=== PATIENT | female | born 1990 | race American Indian/Alaskan Native ===

== ENCOUNTER 2020-03-13 09:26 | Emergency (ER) | payer MEDICAID ==
[2020-03-13 09:37] VITALS: BP 130/77
--- NOTE | 2020-03-13 11:26 | Emergency Department Report ---
ED Eye Problem HPI - General Chief complaint: Eye Problems Stated complaint: EYE RT EYE INJURY Time Seen by Provider: 03/13/20 11:20 Source: patient Mode of arrival: Ambulatory Limitations: No Limitations - History of Present Illness Initial comments: Patient is a 30-year-old female who presents emergency room with complaints of right eye pain, swelling, irritation that began yesterday when she got off work. She denies any fall or injury. She denies anything getting into the eye. She states that she has had lots of drainage and feels like her vision is blurry. She states that she was wearing false lashes yesterday with glue. She has a past medical history of diabetes. She denies allergies to medications. She states that she is post making an appointment with an air conditioning installer. - Related Data Previous Rx's Medication Instructions Recorded Last Taken Type Erythromycin [Erythromycin Ophth 1 applicatio OD QID 7 Days #1 tube 03/13/20 Unknown Rx Oint] ED Review of Systems ROS: Stated complaint: EYE RT EYE INJURY Other details as noted in HPI Comment: All other systems reviewed and negative ED Past Medical Hx - Past Medical History Previous Medical History?: Yes Hx Diabetes: Yes - Surgical History Past Surgical History?: Yes Additional Surgical History: C section - Medications Home Medications: Home Medications Medication Instructions Recorded Confirmed Last Taken Type Erythromycin [Erythromycin Ophth 1 applicatio OD QID 7 Days #1 tube 03/13/20 Unknown Rx Oint] ED Physical Exam - General Limitations: No Limitations General appearance: alert, in no apparent distress - Head Head exam: Present: atraumatic, normocephalic - Eye Eye exam: Present: PERRL, EOMI, conjunctival injection (right), other (right upper eyelid edema, scaling, and erythema, localized only to the lid) Pupils: Present: normal accommodation, other (no signs of entrapment, no pain with EOM) - ENT ENT exam: Present: mucous membranes moist - Respiratory Respiratory exam: Absent: respiratory distress, accessory muscle use - Neurological Exam Neurological exam: Present: alert, oriented X3 - Psychiatric Psychiatric exam: Present: normal affect, normal mood - Skin Skin exam: Present: warm, dry ED Course Vital Signs 03/13/20 03/13/20 09:36 11:34 Temperature 98.8 F Pulse Rate 108 H 84 Respiratory 16 Rate Blood Pressure 130/77 [Right] O2 Sat by Pulse 100 Oximetry ED Medical Decision Making - Medical Decision Making Patient is a 30-year-old female who presents emergency room with complaints of right eye pain, swelling, irritation that began yesterday when she got off work. She denies any fall or injury. She denies anything getting into the eye. She states that she has had lots of drainage and feels like her vision is blurry. She states that she was wearing false lashes yesterday with glue. She has a past medical history of diabetes. She denies allergies to medications. She states that she is post making an appointment with an air conditioning installer. Initial vitals with mild tachycardia which improved to normal upon repeat. On exam: right upper eyelid edema, scaling, and erythema, localized only to the lid, no signs of entrapment, no pain with EOM, right conjunctival injection. Examination appears most consistent with conjunctivitis and blepharitis. Patient given prescription for erythromycin ophthalmic ointment. Patient will be referred to air conditioning installer. Discussed lid hygiene with patient. Advised patient Please use medication as prescribed. Please wash your hands frequently and wash your hands before placing ointment. Avoid rubbing the eyes. Please practice good lid hygiene, wash your lashes with a no tear shampoo but do not get in the eye. Please do not wear false lashes. May use cold compresses. Follow-up with a air conditioning installer. It is very important that you follow-up. Follow-up with your primary care doctor. Return to emergency room for any new or worsening symptoms. Critical care attestation.: If time is entered above; I have spent that time in minutes in the direct care of this critically ill patient, excluding procedure time. ED Disposition Clinical Impression: Conjunctivitis Qualifiers: Conjunctivitis type: acute Acute conjunctivitis type: unspecified Laterality: right Qualified Code(s): H10.31 - Unspecified acute conjunctivitis, right eye Blepharitis Qualifiers: Blepharitis type: unspecified type Laterality: right Eyelid: upper Qualified Code(s): H01.001 - Unspecified blepharitis right upper eyelid Disposition: DC-01 TO HOME OR SELFCARE Is pt being admited?: No Does the pt Need Aspirin: No Condition: Stable Instructions: Conjunctivitis (ED), Blepharitis (ED) Additional Instructions: Please use medication as prescribed. Please wash your hands frequently and wash your hands before placing ointment. Avoid rubbing the eyes. Please practice good lid hygiene, wash your lashes with a no tear shampoo but do not get in the eye. Please do not wear false lashes. May use cold compresses. Follow-up with a air conditioning installer. It is very important that you follow-up. Follow-up with your primary care doctor. Return to emergency room for any new or worsening symptoms. Prescriptions: Erythromycin [Erythromycin Ophth Oint] 1 applicatio OD QID 7 Days #1 tube Referrals: BRANDO VUONG MD [Staff Physician] - 2-3 Days [facility] [Provider Group] - 2-3 Days your, primary care doctor [Other] - 2-3 Days Time of Disposition: 11:24 Print Language: TURKMEN
== END 2020-03-13 11:34 | disposition home or self-care (01) ==
LOC: ED 09:26
DX: H01.003 Unspecified blepharitis right eye, unspecified eyelid (principal); H10.9 Unspecified conjunctivitis; E11.9 Type 2 diabetes mellitus without complications; Z79.899 Other long term (current) drug therapy; Z98.890 Other specified postprocedural states
CPT/HCPCS: 99282

== ENCOUNTER 2020-06-12 00:57 | Emergency (ER) | payer MEDICAID ==
[2020-06-12] MEDS ORDERED: CLINDAMYCIN 150 MG/ML 2 ML VIAL IM ONE (01:19)
[2020-06-12] MEDS ORDERED: oxyCODONE /ACETAMINOPHEN 5-325MG TAB PO ONE (01:20)
[2020-06-12] MEDS ORDERED: LIDOCAINE (2%) 20 MG/1 ML VIAL 20 ML MDV INFILTRATI STA (01:20)
[2020-06-12 01:51] LABS: Basophils % (Auto) 0.1 % (0.0-1.8); Eosinophils # (Auto) 0.3 K/mm3 (0.0-0.4); Hematocrit 40.5 % (30.3-42.9); Hemoglobin 13.4 gm/dl (10.1-14.3); Lymphocytes # (Auto) 0.7 K/mm3 (1.2-5.4); Lymphocytes % (Auto) 4.8 % (13.4-35.0); Mean Corpuscular HGB Conc 33 % (30-34); Mean Corpuscular Volume 90 fl (79-97); Monocytes # (Auto) 0.7 K/mm3 (0.0-0.8); Monocytes % (Auto) 4.3 % (0.0-7.3); Platelet Count 286 K/mm3 (140-440); Red Blood Count 4.52 M/mm3 (3.65-5.03); Red Cell Distribution Width 12.3 % (13.2-15.2)
[2020-06-12 01:56] LABS: Alanine Aminotransferase 11 units/L (7-56); Albumin 3.6 g/dL (3.9-5); Blood Urea Nitrogen 8 mg/dL (7-17); Calcium 8.7 mg/dL (8.4-10.2); Hemolysis Index 7
[2020-06-12 01:59] LABS: BUN/Creatinine Ratio 11
[2020-06-12] MEDS ORDERED: SODIUM CHLORIDE 0.9% 1000 ML 1,000 ML IV ONE ×2 (02:28)
--- NOTE | 2020-06-12 02:29 | Emergency Department Report ---
<HUNTERGRANT BERNARDO - Last Filed: 06/12/20 03:41> - General Chief Complaint: Skin/Abscess/Foreign Body Stated Complaint: SPIDER BITE ON BUTT Time Seen by Provider: 06/12/20 01:15 Source: patient Mode of arrival: Ambulatory Limitations: No Limitations - History of Present Illness Initial Comments: 30-year-old -[place] female diabetic presents emerged department complaining of a few day history of progressive worsening abscess to the right buttocks which appeared to have gotten worse after she poked it with a pen a couple days ago states that she only got blood out of the wound but the swelling and pain had worsened reports occasional fevers and sensation but no nausea no vomiting no chest pain or palpitations -: Gradual 1 - Abscess area Place: home Associated Symptoms: pain - Related Data Previous Rx's Medication Instructions Recorded Last Taken Type Erythromycin [Erythromycin Ophth 1 applicatio OD QID 7 Days #1 tube 03/13/20 Unknown Rx Oint] Acetaminophen/Codeine [Tylenol 1 tab PO Q6H PRN #10 tab 06/12/20 Unknown Rx /Codeine # 3 tab] Chlorhexidine Gluconate 5 ml TP BID #240 liquid 06/12/20 Unknown Rx [Antiseptic Skin Cleanser] Clindamycin [Clindamycin CAP] 150 mg PO Q8HR #30 capsule 06/12/20 Unknown Rx Allergies Allergy/AdvReac Type Severity Reaction Status Date / Time No Known Allergies Allergy Verified 06/12/20 01:51 ED Review of Systems Comment: All other systems reviewed and negative ED Past Medical Hx - Past Medical History Previous Medical History?: Yes Hx Diabetes: Yes - Surgical History Past Surgical History?: Yes Additional Surgical History: C section x2 - Social History Smoking Status: Never Smoker Substance Use Type: None - Medications Home Medications: Home Medications Medication Instructions Recorded Confirmed Last Taken Type Erythromycin [Erythromycin Ophth 1 applicatio OD QID 7 Days #1 tube 03/13/20 Unknown Rx Oint] Acetaminophen/Codeine [Tylenol 1 tab PO Q6H PRN #10 tab 06/12/20 Unknown Rx /Codeine # 3 tab] Chlorhexidine Gluconate 5 ml TP BID #240 liquid 06/12/20 Unknown Rx [Antiseptic Skin Cleanser] Clindamycin [Clindamycin CAP] 150 mg PO Q8HR #30 capsule 06/12/20 Unknown Rx ED Physical Exam - General Limitations: No Limitations General appearance: alert, in no apparent distress - Head Head exam: Present: atraumatic, normocephalic - Eye Eye exam: Present: normal appearance, PERRL Pupils: Present: normal accommodation - ENT ENT exam: Present: normal exam, mucous membranes moist, TM's normal bilaterally - Neck Neck exam: Present: normal inspection, full ROM. Absent: meningismus, lymphadenopathy, thyromegaly - Respiratory Respiratory exam: Present: normal lung sounds bilaterally. Absent: respiratory distress, rales, rhonchi, decreased breath sounds, prolonged expiratory - Cardiovascular Cardiovascular Exam: Present: regular rate, normal rhythm. Absent: systolic murmur, diastolic murmur, rubs, gallop - GI/Abdominal GI/Abdominal exam: Present: soft, normal bowel sounds - Extremities Exam Extremities exam: Present: normal inspection - Back Exam Back exam: Present: normal inspection - Neurological Exam Neurological exam: Present: alert, oriented X3 - Psychiatric Psychiatric exam: Present: normal affect, normal mood - Skin Skin exam: Present: warm, dry, intact, normal color. Absent: rash - Procedure Description Procedures done: PRE-OP DIAGNOSIS: *Abscess. POST-OP DIAGNOSIS: Same. PROCEDURE: incision and drainage of abscess. Performing Physician/advanced practice provider: Jennifer Fernandez_. . PROCEDURE: A timeout protocol was performed prior to initiating the procedure. The area was prepared and draped in the usual, sterile manner. The site was anesthetized with 2% lidocaine without epinephrine. A linear incision was along the local skin lines was made and the purulent material expressed. The abcess was explored thoroughly and sequestered pockets were opened. Wound was irrigated with normal saline and bleeding was minimal. Packing: None. . Followup: The patient tolerated the procedure well without complications. Standard post-procedure care is explained and return precautions are given. ED Medical Decision Making - Lab Data Result diagrams: 06/12/20 01:22 06/12/20 01:22 - Medical Decision Making 30-year-old -[place] female presents usually diabetes [facility] abscess incision and drainage was performed with no complications she was treated with clindamycin while in the emergency department and began to have a reaction to the medication which was treated with antihistamines steroids and fluids she also had his elevation in her blood sugar was treated with insulin 10 mg ED Disposition Disposition: DC-01 TO HOME OR SELFCARE Is pt being admited?: No Does the pt Need Aspirin: No Condition: Stable Instructions: Skin Abscess, Incision and Drainage Additional Instructions: Be sure to have your wound rechecked in 48 hours for reevaluation clean your wound multiple times daily take them antibiotics as prescribed TAKE Motrin as needed for fever and to assist with pain medication Prescriptions: Chlorhexidine Gluconate [Antiseptic Skin Cleanser] 5 ml TP BID #240 liquid Clindamycin [Clindamycin CAP] 150 mg PO Q8HR #30 capsule Acetaminophen/Codeine [Tylenol /Codeine # 3 tab] 1 tab PO Q6H PRN #10 tab PRN Reason: Pain , Severe (7-10) Referrals: MANUEL OLSON MD [Primary Care Provider] - 3-5 Days [facility] [Provider Group] - 3-5 Days PATTI JUÁREZ MD [Staff Physician] - 3-5 Days <IZA HUERTA - Last Filed: 06/12/20 04:19> ED Review of Systems ROS: Stated complaint: SPIDER BITE ON BUTT Other details as noted in HPI ED Course Vital Signs 06/12/20 06/12/20 01:02 03:27 Temperature 98.2 F 98.0 F Pulse Rate 161 H 123 H Respiratory 18 18 Rate Blood Pressure 149/101 118/74 O2 Sat by Pulse 96 95 Oximetry ED Medical Decision Making - Lab Data Result diagrams: 06/12/20 01:22 06/12/20 01:22 - Medical Decision Making ED staff member asked me to evaluate patient for persistent discomfort due to allergic reaction. Patient has diffuse redness itching after receiving IM clindamycin. I ordered additional doses of diphenhydramine IV. Also ordered hydrocortisone cream topical. Critical care attestation.: If time is entered above; I have spent that time in minutes in the direct care of this critically ill patient, excluding procedure time.
[2020-06-12] MEDS ORDERED: FAMOTIDINE 20 MG/2 ML INJ IV ONE (03:39)
[2020-06-12] MEDS ORDERED: diphenhydrAMINE 50 MG/ML VIAL IV ONE ×3 (03:39→05:36)
[2020-06-12] MEDS ORDERED: INSULIN REGULAR, HUMAN 100 UNIT/ML 3ML VIAL IV ONE (03:39)
[2020-06-12] MEDS ORDERED: methylPREDNISolone Sod Succinate 125 MG/2 ML INJ IV ONE ×2 (03:40→05:29)
[2020-06-12 03:41] VITALS: BP 118/74
[2020-06-12] MEDS ORDERED: INSULIN REGULAR, HUMAN 100 UNITS/1 ML ONE (03:45)
[2020-06-12] MEDS ORDERED: HYDROCORTISONE 1% CREAM 28.4GM TP ONE (04:18)
[2020-06-12] MEDS ORDERED: hydrOXYzine HCL 25 MG TAB PO ONE (05:29)
== END 2020-06-12 06:23 | disposition home or self-care (01) ==
LOC: ED 00:57
DX: L02.31 Cutaneous abscess of buttock (principal); E11.9 Type 2 diabetes mellitus without complications; Z79.899 Other long term (current) drug therapy; Z88.8 Allergy status to other drugs, medicaments and biological substances
CPT/HCPCS: 10060; 36415; 80053; 85025; 96361; 96372; 96374; 96375; 96376; 99283; A6250; J1200; J2930; J7030; J1815

== ENCOUNTER 2020-07-03 10:43 | Emergency (ER) | payer MEDICAID ==
[2020-07-03 11:23] VITALS: BP 107/68
--- NOTE | 2020-07-03 11:36 | Emergency Department Report ---
Abscess Boil HPI - HPI Chief Complaint: Skin/Abscess/Foreign Body Stated Complaint: SPIDER BITE RETURNED Time Seen by Provider: 07/03/20 11:12 Duration: >1 Week Location: Other (Buttocks) History: Yes Pain, No Fever, No Purulent Drainage, No Numbness, No Foreign Body, No Previous History, No Insect Bite HPI: Is a very pleasant 30-year-old female presents the emergency department chief complaint of an abscess to her right buttocks. Patient reports she has a history of type 2 diabetes that is poorly controlled with insulin. She states usually her sugars run around 300 because she does not like to get it much lower than that due to it making her feel bad. She reports she was here 1 month ago with the same issue and had the abscess drained and was given a dose of IV antibiotics which caused itching and oral antibiotics which caused allergic reaction as well. She denies any associated fever, chills, night sweats, headache, dizziness, blurry vision, nausea, vomiting, diarrhea, chest pain, shortness of breath or any other associated symptoms. Home Medications: Previous Rx's Medication Instructions Recorded Last Taken Type Erythromycin [Erythromycin Ophth 1 applicatio OD QID 7 Days #1 tube 03/13/20 Unknown Rx Oint] Acetaminophen/Codeine [Tylenol 1 tab PO Q6H PRN #10 tab 06/12/20 Unknown Rx /Codeine # 3 tab] Chlorhexidine Gluconate 5 ml TP BID #240 liquid 06/12/20 Unknown Rx [Antiseptic Skin Cleanser] Famotidine [Pepcid] 40 mg PO DAILY #14 tablet 06/12/20 Unknown Rx cephALEXin [Keflex] 500 mg PO Q8HR #30 cap 06/12/20 Unknown Rx hydrOXYzine HCL [Atarax] 25 mg PO Q6HR PRN #20 tablet 06/12/20 Unknown Rx predniSONE [Deltasone] 50 mg PO QDAY #5 tab 06/12/20 Unknown Rx Naproxen [Naprosyn TAB] 500 mg PO BID #20 tablet 07/03/20 Unknown Rx Sulfamethoxazole/Trimethoprim 1 each PO BID #14 tablet 07/03/20 Unknown Rx [Bactrim DS TAB] Allergies/Adverse Reactions: Allergies Allergy/AdvReac Type Severity Reaction Status Date / Time clindamycin Allergy Itching Verified 06/12/20 04:31 ED Review of Systems ROS: Stated complaint: SPIDER BITE RETURNED Other details as noted in HPI Comment: All other systems reviewed and negative Constitutional: denies: chills, fever Eyes: denies: eye pain, eye discharge, vision change ENT: denies: ear pain, throat pain Respiratory: denies: cough, shortness of breath, wheezing Cardiovascular: denies: chest pain, palpitations Endocrine: no symptoms reported Gastrointestinal: denies: abdominal pain, nausea, diarrhea Genitourinary: denies: urgency, dysuria, discharge Musculoskeletal: denies: back pain, joint swelling, arthralgia Skin: as per HPI, lesions. denies: rash Neurological: denies: headache, weakness, paresthesias Psychiatric: denies: anxiety, depression Hematological/Lymphatic: denies: easy bleeding, easy bruising ED Past Medical Hx - Past Medical History Previous Medical History?: Yes Hx Diabetes: Yes - Surgical History Past Surgical History?: Yes Additional Surgical History: C section - Social History Smoking Status: Never Smoker Substance Use Type: None - Medications Home Medications: Home Medications Medication Instructions Recorded Confirmed Last Taken Type Erythromycin [Erythromycin Ophth 1 applicatio OD QID 7 Days #1 tube 03/13/20 Unknown Rx Oint] Acetaminophen/Codeine [Tylenol 1 tab PO Q6H PRN #10 tab 06/12/20 Unknown Rx /Codeine # 3 tab] Chlorhexidine Gluconate 5 ml TP BID #240 liquid 06/12/20 Unknown Rx [Antiseptic Skin Cleanser] Famotidine [Pepcid] 40 mg PO DAILY #14 tablet 06/12/20 Unknown Rx cephALEXin [Keflex] 500 mg PO Q8HR #30 cap 06/12/20 Unknown Rx hydrOXYzine HCL [Atarax] 25 mg PO Q6HR PRN #20 tablet 06/12/20 Unknown Rx predniSONE [Deltasone] 50 mg PO QDAY #5 tab 06/12/20 Unknown Rx Naproxen [Naprosyn TAB] 500 mg PO BID #20 tablet 07/03/20 Unknown Rx Sulfamethoxazole/Trimethoprim 1 each PO BID #14 tablet 07/03/20 Unknown Rx [Bactrim DS TAB] ED Abscess Boil Physical Exam - Exam General: Vital signs noted. No distress. Alert and acting appropriately. Size: 5 cm Exam: Yes Fluctuance, Yes Normal Neurologic Exam, Yes Normal Circulation, No Tenderness, No Surrounding Cellulites/Erythema, No Lymphangitis, No Crepitation, No Heart Murmur Exam: GENERAL APPEARANCE: Well-developed, well-nourished, no acute distress. HEENT: Normocephalic and atraumatic. No scleral icterus. Pupils are equal, round, and reactive to light and accommodation. No conjunctival injection is noted. Oropharynx is clear. Mouth revealed good dentition, no lesions. Tympanic membranes are clear. NECK: Supple. Trachea is midline. No evidence of thyroid enlargement. No lymphadenopathy or tenderness. CHEST: Symmetric. Nontender to palpation. LUNGS: Breath sounds are equal and clear bilaterally. No wheezes, rhonchi, or rales. HEART: Regular rate and rhythm with normal S1 and S2. No murmurs, gallops, or rubs. BREASTS: Symmetrical. No skin or nipple retractions. No nipple discharges or masses. ABDOMEN: Soft, flat, and benign. No mass, tenderness, guarding, or rebound. No organomegaly or hernia. Bowel sounds are present. No CVA tenderness or flank mass. GENITOURINARY: Deferred. RECTAL: Deferred. EXTREMITIES: No cyanosis, clubbing, or edema. No lower extreme edema, negative Homans sign bilaterally. NEUROLOGIC: No focal sensory or motor deficits are noted. Gait is normal. Cranial nerves II through XII are intact. Deep tendon reflexes are intact. PSYCHIATRIC: The patient is awake, alert, and oriented x3. Recent and remote memory is intact. Appropriate mood and affect. SKIN: Warm, dry, and well perfused. Good turgor. No lesions, nodules or rashes are noted. No onychomycosis. Large fluctuant abscess to the right buttocks. LYMPHATICS: No cervical, axillary, or groin adenopathy is noted. I & D Note - I & D Note I & D Note: The area was first cleaned with Betadine prep. I then anesthetized the area with 1% lidocaine without epinephrine I then made a 1 cm incision over the area of most fluctuance. A copious amount of purulent drainage was then expressed. The wound was then deloculated and irrigated and approximately 10 cm of iodoform packing was placed inside the wound. Patient tolerated this very well. Sterile dressing was applied. There were no complications. Less than 5 mL of blood loss. ED Course Vital Signs 07/03/20 11:19 Temperature 97.9 F Pulse Rate 112 H Respiratory 18 Rate Blood Pressure 107/68 O2 Sat by Pulse 99 Oximetry Critical care attestation.: If time is entered above; I have spent that time in minutes in the direct care of this critically ill patient, excluding procedure time. ED Medical Decision Making - Medical Decision Making Incision and drainage was performed without complication. Patient tolerated this well. I spent 5 minutes of [id number] time with doing diabetic education about the importance of diet, exercise and close primary care follow-up to ensure that her diabetes is managed properly. I educated her about the risk of not having properly controlled diabetes such as recurrent infections such as the abscess on her buttocks, heart disease, stroke, vascular disease, renal disease, blindness. She was given a prescription for keflex previously that caused a reaction. I will switch her to bactrim and outpatient follow-up with a primary care doctor. Return the emerge department any change or worsening symptoms. She verbalized understanding of the diagnosis, treatment plan and follow-up instructions and all her questions were answered. - Differential Diagnosis Abscess, insect bite, abrasion ED Disposition Clinical Impression: Abscess of buttock Disposition: DC-01 TO HOME OR SELFCARE Is pt being admited?: No Condition: Stable Instructions: Skin Abscess, Incision and Drainage, Care After Prescriptions: Sulfamethoxazole/Trimethoprim [Bactrim DS TAB] 1 each PO BID #14 tablet Naproxen [Naprosyn TAB] 500 mg PO BID #20 tablet Referrals: [facility] [Provider Group] - 3-5 Days PATTI JUÁREZ MD [Staff Physician] - 3-5 Days Forms: Work/School Release Form(ED) Time of Disposition: 11:35
== END 2020-07-03 12:22 | disposition home or self-care (01) ==
LOC: ED 10:43
DX: L02.31 Cutaneous abscess of buttock (principal); E11.9 Type 2 diabetes mellitus without complications; Z98.890 Other specified postprocedural states; Z79.2 Long term (current) use of antibiotics; Z79.899 Other long term (current) drug therapy; Z88.8 Allergy status to other drugs, medicaments and biological substances
CPT/HCPCS: 99282

== ENCOUNTER 2020-09-16 23:49 | Emergency (ER) | payer MEDICAID ==
[2020-09-17] MEDS ORDERED: KETOROLAC 30 MG/1 ML INJ IV ONE (00:39)
[2020-09-17] MEDS ORDERED: FAMOTIDINE 20 MG/2 ML INJ IV ONE (00:39)
[2020-09-17] MEDS ORDERED: ACETAMINOPHEN 500 MG TAB PO ONE (00:39)
[2020-09-17] MEDS ORDERED: diphenhydrAMINE 50 MG/ML VIAL IV ONE (00:39)
[2020-09-17] MEDS ORDERED: methylPREDNISolone Sod Succinate 125 MG/2 ML INJ IV ONE (00:39)
[2020-09-17] MEDS ORDERED: SODIUM CHLORIDE 0.9% 1000 ML 1,000 ML IV ONE (00:39)
--- NOTE | 2020-09-17 00:44 | Emergency Department Report ---
ED General Adult HPI - General Chief complaint: Allergic Reaction Stated complaint: ALLERGIC REACTION/CHEST PAIN PUI?: No Time Seen by Provider: 09/17/20 00:30 Source: patient, RN notes reviewed, old records reviewed Mode of arrival: Ambulatory Limitations: No Limitations - History of Present Illness Initial comments: The patient was evaluated in the emergency department for symptoms described in the history of present illness. He/she was evaluated in the context of the global COVID-19 pandemic, which necessitated consideration that the patient might be at risk for infection with the virus that causes COVID-19. Instituti onal protocols and algorithms that pertain to the evaluation of patients at risk for COVID-19 are in a state of rapid change based on information released by regulatory bodies including the CDC and federal and state organizations. These policies and algorithms were followed during the patient's care in the emergency department. Please note that these policies, procedures and recommendations changed on a rapid basis. During the history and physical examination, I am chaperoned by nurse Ericka goddard This is a 30-year-old female. She is not known to myself previously. She reports that she is not , and has not delivered or given in the past 6 weeks. The patient presents to the ER with 2 complaints. The patient's first complaint is "I think I had an allergic reaction." Patient reports that she has been on Bactrim for the past 3 days for a "urinary tract infection", that was diagnosed a few days ago at an outpatient urgent care/medical clinic. She has taken the Bactrim for the past few days without difficulty, but this evening, at approximately 11:00 PM, took the Bactrim tablet, and then subsequently developed skin rash, and itching. It is now resolved. The patient also says that simultaneously, she developed left-sided chest wall pain, around her left breast. The pain did not radiate to her back, arms or neck. There is no vomiting, diaphoresis or exertional shortness of breath. Patient denies surgery, travel, posterior leg pain and leg swelling, travel, surgery, personal/family history of DVT pulmonary embolism risk factors, as well as ischemic heart disease. The patient is mildly anxious. On review of systems, denies headache, neck pain, sore throat, cough, she does have persistent dysuria, and vaginal discharge. She does report a distant history of gonorrhea/possible chlamydia/possible trichomoniasis, 10 to 12 years ago. She reports 1 sexual partner. She thinks STI is unlikely. She denies rectal pain or dyschezia. -: Sudden Location: chest (Left chest wall, inferior/lateral to the left breast), back, left, right, upper extremity, lower extremity Quality: other (Itching. Aching.) Consistency: other (Chest pain intermittent. Rash is basically resolved at this time) Improves with: rest Worsens with: other (Chest wall pain increases with palpation) - Related Data Previous Rx's Medication Instructions Recorded Last Taken Type Chlorhexidine Gluconate 5 ml TP BID #240 liquid 06/12/20 Unknown Rx [Antiseptic Skin Cleanser] Famotidine [Pepcid] 40 mg PO DAILY #14 tablet 06/12/20 Unknown Rx hydrOXYzine HCL [Atarax] 25 mg PO Q6HR PRN #20 tablet 06/12/20 Unknown Rx predniSONE [Deltasone] 50 mg PO QDAY #5 tab 06/12/20 Unknown Rx Naproxen [Naprosyn TAB] 500 mg PO BID #20 tablet 07/03/20 Unknown Rx EPINEPHrine [Epipen 2-Cachorro] 0.3 mg IM DAILY PRN #2 ml 09/17/20 Unknown Rx Famotidine [Pepcid] 20 mg PO BID #10 tablet 09/17/20 Unknown Rx Nitrofurantoin Mason/M-Cryst 100 mg PO Q12HR #14 capsule 09/17/20 Unknown Rx [Macrobid CAP] diphenhydrAMINE [Benadryl] 50 mg PO Q8HR PRN #20 capsule 09/17/20 Unknown Rx Allergies Allergy/AdvReac Type Severity Reaction Status Date / Time clindamycin Allergy Itching Verified 06/12/20 04:31 ED Review of Systems ROS: Stated complaint: ALLERGIC REACTION/CHEST PAIN Other details as noted in HPI Constitutional: denies: fever Eyes: denies: eye discharge ENT: denies: epistaxis Respiratory: denies: cough Cardiovascular: chest pain Gastrointestinal: denies: abdominal pain, nausea, vomiting, hematemesis, melena Genitourinary: dysuria, discharge Musculoskeletal: denies: back pain Skin: rash, pruritus Psychiatric: anxiety Hematological/Lymphatic: denies: easy bleeding ED Past Medical Hx - Past Medical History Previous Medical History?: Yes Hx Diabetes: Yes - Surgical History Past Surgical History?: Yes Additional Surgical History: C section X 2 - Social History Smoking Status: Never Smoker Substance Use Type: None - Medications Home Medications: Home Medications Medication Instructions Recorded Confirmed Last Taken Type Chlorhexidine Gluconate 5 ml TP BID #240 liquid 06/12/20 Unknown Rx [Antiseptic Skin Cleanser] Famotidine [Pepcid] 40 mg PO DAILY #14 tablet 06/12/20 Unknown Rx hydrOXYzine HCL [Atarax] 25 mg PO Q6HR PRN #20 tablet 06/12/20 Unknown Rx predniSONE [Deltasone] 50 mg PO QDAY #5 tab 06/12/20 Unknown Rx Naproxen [Naprosyn TAB] 500 mg PO BID #20 tablet 07/03/20 Unknown Rx EPINEPHrine [Epipen 2-Cachorro] 0.3 mg IM DAILY PRN #2 ml 09/17/20 Unknown Rx Famotidine [Pepcid] 20 mg PO BID #10 tablet 09/17/20 Unknown Rx Nitrofurantoin Mason/M-Cryst 100 mg PO Q12HR #14 capsule 09/17/20 Unknown Rx [Macrobid CAP] diphenhydrAMINE [Benadryl] 50 mg PO Q8HR PRN #20 capsule 09/17/20 Unknown Rx ED Physical Exam - General Limitations: No Limitations, Other (Chaperoned by nurse Ericka Palomo) General appearance: alert, in no apparent distress - Head Head exam: Present: atraumatic, normocephalic - Eye Eye exam: Present: normal appearance, EOMI. Absent: nystagmus - ENT ENT exam: Present: normal exam, normal orophraynx, mucous membranes moist, normal external ear exam, other (Speaking in full sentences, without stridor or dysphonia) - Neck Neck exam: Present: normal inspection, full ROM. Absent: tenderness, meningismus - Respiratory Respiratory exam: Present: normal lung sounds bilaterally, chest wall tenderne ss. Absent: respiratory distress, wheezes, rales, rhonchi, stridor - Cardiovascular Cardiovascular Exam: Present: normal rhythm, tachycardia, normal heart sounds. Absent: irregular rhythm, systolic murmur, diastolic murmur, rubs, gallop - GI/Abdominal GI/Abdominal exam: Present: soft. Absent: distended, tenderness, guarding, rebound, rigid, pulsatile mass - External exam: Present: normal external exam. Absent: erythema, swelling Speculum exam: Present: vaginal discharge, other (Chaperoned by nurse Ericka Palomo). Absent: erythema, vaginal bleeding - Extremities Exam Extremities exam: Present: normal inspection (On the right lateral arm, there is blanching nontender erythema. Linear scratch haddad noted on the posterior back.), full ROM, other (2+ pulses noted in the bilateral upper and lower extremities. There is no palpable cord. negative Homans sign. Muscular compartments are soft. The pelvis is stable.). Absent: pedal edema, calf tenderness - Back Exam Back exam: Present: normal inspection, full ROM. Absent: tenderness, CVA tenderness (R), CVA tenderness (L), paraspinal tenderness, vertebral tenderness - Neurological Exam Neurological exam: Present: alert, other (No facial droop. Tongue midline. Extraocular movements intact bilaterally. Facial sensation intact to light touch in V1, V2, V3 distribution bilaterally. 5 and a 5 strength in 4 extremities. Sensation intact to light touch in 4 extremities.). Absent: motor sensory deficit - Psychiatric Psychiatric exam: Present: anxious - Skin Skin exam: Present: warm, erythema, other (Linear scratch haddad noted on the back) ED Course Vital Signs 09/17/20 09/17/20 09/17/20 00:22 00:45 00:53 Temperature 98.5 F Pulse Rate 116 H 105 H Respiratory 20 16 18 Rate Blood Pressure 134/85 109/70 O2 Sat by Pulse 100 99 Oximetry 09/17/20 09/17/20 09/17/20 01:00 01:23 01:53 Temperature Pulse Rate 90 Respiratory 20 18 18 Rate Blood Pressure 120/79 O2 Sat by Pulse Oximetry - Reevaluation(s) Reevaluation #1: 09/17/20 00:44 Differential diagnosis, including but not limited to: Bactrim intolerance, medication side effect, allergic reaction, costochondritis, vaginitis, urinary tract infection Assessment and plan: 30-year-old female with multiple complaints. Complaint #1, possible allergic reaction to Bactrim, having been on this medication for a few days, although with breakthrough symptoms today. Patient minimally pruritic at this time. She does have a rash on her right lateral upper extremity. She denies having a tampon. We will obtain clean-catch urinalysis, treat with Pepcid, Benadryl, steroids, start IV fluids. Perform gynecologic examination. Reassess. Complaint #2, left-sided chest wall pain. Patient is tachycardic but anxious, she is on Depo, but otherwise denies DVT and pulmonary embolism risk factors, and I find to be low risk by Wells criteria for pulmonary embolism. Her chest wall pain is reproducible. Assuming negative troponin which we anticipate, patient at low risk for major adverse cardiac event as per heart score We will treat her symptoms, obtain EKG, appropriate laboratory studies, x-ray of the chest, and reassess after initial data points. Reevaluation #2: 09/17/20 03:30 Troponin negative. D-dimer negative. Hyperglycemia appreciated. Patient reports that she is due for new insulin pump. She is going to follow-up with a local outpatient primary care doctor. Urinalysis reviewed and appreciated. Patient updated on findings. She indicates she is ready for discharge. Once Accu-Chek/hyperglycemia improved, will discharge patient. Reevaluation #3: 09/17/20 03:58 Repeat Accu-Chek 194. - Consultations Consultation #1: 09/17/20 01:02 EKG transmitted to consulting sales strategy manager, Dr. Gomes. We have discussed the patient's history, physical, and presentation. Patient to me denies palpitations and loss of consciousness/syncope. He advises that it would be reasonable to have the patient follow-up as an outpatient for abnormal EKG. Therefore, we will continue to work-up and evaluate the patient, and if no emergent findings identified, discharged to follow-up with outpatient cardiology as well as primary care. ED Medical Decision Making - Lab Data Result diagrams: 09/17/20 00:46 09/17/20 00:46 Vital Signs 09/17/20 00:22 Temperature 98.5 F Pulse Rate 116 H Respiratory 20 Rate Blood Pressure 134/85 O2 Sat by Pulse 100 Oximetry - EKG Data -: EKG Interpreted by Me Rate: tachycardia - EKG Data When compared to previous EKG there are: previous EKG unavailable 09/17/20 00:52 EKG interpreted at 12: 47 AM Sinus rhythm, tachycardia, 101 bpm. Left axis deviation. Delta wave appreciated in lead I, 2, aVL, suspicious for WPW. QRS duration in lead I and aVL 120 to 160 ms. Q waves noted in lead III. This is an abnormal EKG, the EKG is not a STEMI. There is no prior for comparison - Radiology Data Radiology results: pending, report reviewed, image reviewed [facility] [address] [place] [address] XRay Report Signed Patient: SIRENA IBRAHIM MR#: [id number] : 1990 Acct:[id number] Age/Sex: 30 / F ADM Date: 09/16/20 Loc: ED Attending Dr: Ordering Physician: MONIQUE PINA MD Date of Service: 09/17/20 Procedure(s): XR chest routine 2V Accession Number(s): [id number] cc: MONIQUE PINA MD Fluoro Time In Minutes: CHEST 2 VIEWS INDICATION / CLINICAL INFORMATION: Chest pain. Allergic reaction. COMPARISON: None available. FINDINGS: SUPPORT DEVICES: None. HEART / MEDIASTINUM: The heart size and pulmonary vasculature are normal. The aorta is normal in caliber. LUNGS / PLEURA: No significant pulmonary or pleural abnormality. No pneumothorax. ADDITIONAL FINDINGS: No significant additional findings. IMPRESSION: No acute findings. Signer Name: Mesfin Saavedra MD Signed: 09/17/2020 3:01 AM Workstation Name: [id number] Transcribed By: RT Dictated By: Mesfin Saavedra MD Electronically Authenticated By: Mesfin Saavedra MD Signed Date/Time: 09/17/20 030 DD/ 0300 Critical care attestation.: If time is entered above; I have spent that time in minutes in the direct care of this critically ill patient, excluding procedure time. ED Disposition Clinical Impression: Chest wall pain, Abnormal EKG, Medication side effect, Hyperglycemia, Dysuria, Vaginal discharge Disposition: DC-01 TO HOME OR SELFCARE Is pt being admited?: No Does the pt Need Aspirin: No Condition: Good Instructions: Hyperglycemia, Drug Allergy, Dysuria, Costochondritis Additional Instructions: Cultures were sent today, the results be available in the next 3 to 5 days. Please have your primary care doctor, or DOCUMENT CONTROL ASSOCIATE doctor contact medical records department to obtain copies of culture results. Patient was found to have an incidentally abnormal EKG, which should be followed up by a sales strategy manager within the next 3 to 5 days. For the patient's convenience, we have listed name, practice of local cardiology practice, [facility], Dr. Gomes. Please make certain to contact local cardiology practice, to arrange close outpatient follow-up. Please have a primary care doctor contact medical records department to obtain copies of laboratory studies, radiology studies, and culture results. Patient may take the prescribed medications as needed and directed for sensation of allergic reaction. Please return to the emergency room right away with new pain, worsened pain, migration of pain, projectile vomiting, change in mental status, confusion, inability to tolerate liquid feeds, palpitations, loss of consciousness. Recommend that patient avoid consumption of alcohol, tobacco Recommend that patient avoid strenuous physical activity, athletics, until cleared to participate by your primary care doctor or sales strategy manager. Recommend that patient consume a diabetic appropriate diet. Recommend that patient discontinue Bactrim. Patient may take the Macrobid as directed. Prescriptions: diphenhydrAMINE [Benadryl] 50 mg PO Q8HR PRN #20 capsule PRN Reason: Allergic Reaction EPINEPHrine [Epipen 2-Cachorro] 0.3 mg IM DAILY PRN #2 ml PRN Reason: Allergic Reaction Nitrofurantoin Mason/M-Cryst [Macrobid CAP] 100 mg PO Q12HR #14 capsule Famotidine [Pepcid] 20 mg PO BID #10 tablet Referrals: [facility] [Provider Group] - 3-5 Days (Cardiology) FELICIANO GOMES MD [Staff Physician] - 3-5 Days (Cardiology) PATTI JUÁREZ MD [Staff Physician] - 3-5 Days (Primary care) MANUEL OLSON MD [Primary Care Provider] - 3-5 Days [facility] [Provider Group] - 3-5 Days
[2020-09-17 00:58] LABS: Hematocrit 41.2 % (30.3-42.9); Hemoglobin 14.2 gm/dl (10.1-14.3); Mean Corpuscular HGB Conc 34 % (30-34); Mean Corpuscular Volume 90 fl (79-97); Platelet Count 271 K/mm3 (140-440); Red Blood Count 4.58 M/mm3 (3.65-5.03); Red Cell Distribution Width 12.4 % (13.2-15.2)
[2020-09-17 01:10] LABS: INR 0.96 (0.87-1.13)
[2020-09-17 01:35] LABS: Bacteria,Urine 1+ /HPF (Negative); Bilirubin,Urine NEG (Negative); Blood,Urine SM (Negative); Color,Urine Straw (Yellow); Protein,Urine <15 mg/dL mg/dL (Negative); Urobilinogen,Urine < 2.0 mg/dL (<2.0)
[2020-09-17 02:15] LABS: Alanine Aminotransferase 13 units/L (7-56); Albumin 4.6 g/dL (3.9-5); BUN/Creatinine Ratio 16; Blood Urea Nitrogen 13 mg/dL (7-17); Calcium 9.4 mg/dL (8.4-10.2); Hemolysis Index 5
[2020-09-17] MEDS ORDERED: INSULIN REGULAR, HUMAN 100 UNITS/1 ML IV ONE (02:27)
--- NOTE | 2020-09-17 03:05 | XRay Report ---
CHEST 2 VIEWS INDICATION / CLINICAL INFORMATION: Chest pain. Allergic reaction. COMPARISON: None available. FINDINGS: SUPPORT DEVICES: None. HEART / MEDIASTINUM: The heart size and pulmonary vasculature are normal. The aorta is normal in adeline guillermo. LUNGS / PLEURA: No significant pulmonary or pleural abnormality. No pneumothorax. ADDITIONAL FINDINGS: No significant additional findings. IMPRESSION: No acute findings. Signer Name: Mesfin Saavedra MD Signed: 09/17/2020 3:01 AM Workstation Name: [id number]
[2020-09-17] MEDS ORDERED: FLUCONAZOLE 100 MG TAB PO ONE (03:59)
[2020-09-17 04:30] VITALS: BP 103/65
--- NOTE | 2020-09-19 10:38 | Electrocardiograph Report ---
[facility] Test Date: 2020-09-17 Test Time: 00:43:24 Pat Name: SIRENA IBRAHIM Department: Room: Gender: F Practice Managers: PHILIP : 1990 Requested By: MONIQUE PINA Order Number: [id number] Reading MD: Kasie Kinney Measurements Intervals [place] Rate: 101 P: 75 WI: 106 QRS: -8 QRSD: 100 T: 1 QT: 368 QTc: 478 Interpretive Statements Sinus tachycardia Ntczl-Lljfkibca-Tdkru syndrome No previous ECG available for comparison Electronically Signed On 09-19-2020 10:38:29 EDT by Kasie Kinney
== END 2020-09-17 04:25 | disposition home or self-care (01) ==
LOC: ED 23:49
DX: R07.89 Other chest pain (principal); T50.906A Underdosing of unspecified drugs, medicaments and biological substances, initial encounter; E11.65 Type 2 diabetes mellitus with hyperglycemia; N89.8 Other specified noninflammatory disorders of vagina; R30.0 Dysuria; R94.31 Abnormal electrocardiogram [ECG] [EKG]; Z98.890 Other specified postprocedural states; Z79.899 Other long term (current) drug therapy; Z88.1 Allergy status to other antibiotic agents; Y92.89 Other specified places as the place of occurrence of the external cause
CPT/HCPCS: 36415; 71046; 80053; 81001; 82550; 82962; 83735; 84484; 84702; 85027; 85379; 85610; 87086; 87210; 87591; 93005; 96361; 96374; 96375; 99285; J1200; J1885; J2930; J7030; J1815

== ENCOUNTER 2021-01-30 21:58 | Emergency (ER) | payer MEDICAID ==
[2021-01-30 22:42] VITALS: BP 103/68
[2021-01-30] MEDS ORDERED: IBUPROFEN 800 MG TAB PO ONE (22:55)
[2021-01-30] MEDS ORDERED: diphenhydrAMINE 25 MG CAP PO ONE (22:55)
[2021-01-30] MEDS ORDERED: GABAPENTIN 300 MG CAP PO ONE (22:56)
--- NOTE | 2021-01-30 23:01 | Emergency Department Report ---
ED General Adult HPI - General Chief complaint: Extremity Injury, Lower Stated complaint: DIABETIC NUMBNESS/TINGLING Time Seen by Provider: 01/30/21 22:54 Source: patient Mode of arrival: Ambulatory Limitations: No Limitations - History of Present Illness Initial comments: Patient is a 30-year-old -[place] female patient with history of diabetes type 1. Patient uses insulin pump. States history of diabetic neuropathy lower extremities. She states numbness and tingling to bilateral feet and toes with burning sensation S sign. Patient denies fall injury or trauma. Past follow-up with primary care doctor for follow-up for same. There is no redness, swelling, or open wounds. Severity scale (0 -10): 10 - Related Data Previous Rx's Medication Instructions Recorded Last Taken Type Chlorhexidine Gluconate 5 ml TP BID #240 liquid 06/12/20 Unknown Rx [Antiseptic Skin Cleanser] Famotidine [Pepcid] 40 mg PO DAILY #14 tablet 06/12/20 Unknown Rx hydrOXYzine HCL [Atarax] 25 mg PO Q6HR PRN #20 tablet 06/12/20 Unknown Rx predniSONE [Deltasone] 50 mg PO QDAY #5 tab 06/12/20 Unknown Rx Naproxen [Naprosyn TAB] 500 mg PO BID #20 tablet 07/03/20 Unknown Rx EPINEPHrine [Epipen 2-Cachorro] 0.3 mg IM DAILY PRN #2 ml 09/17/20 Unknown Rx Famotidine [Pepcid] 20 mg PO BID #10 tablet 09/17/20 Unknown Rx Nitrofurantoin [place]/M-Cryst 100 mg PO Q12HR #14 capsule 09/17/20 Unknown Rx [Macrobid CAP] diphenhydrAMINE [Benadryl] 50 mg PO Q8HR PRN #20 capsule 09/17/20 Unknown Rx Gabapentin 300 mg PO BID #30 cap 01/30/21 Unknown Rx Ibuprofen [Motrin 800 MG tab] 800 mg PO Q8HR PRN #30 tablet 01/30/21 Unknown Rx diphenhydrAMINE [Benadryl CAP] 25 mg PO Q8HR PRN #30 capsule 01/30/21 Unknown Rx Allergies Allergy/AdvReac Type Severity Reaction Status Date / Time clindamycin Allergy Itching Verified 06/12/20 04:31 ED Review of Systems ROS: Stated complaint: DIABETIC NUMBNESS/TINGLING Other details as noted in HPI Constitutional: denies: chills, fever Eyes: denies: eye pain, eye discharge, vision change ENT: denies: ear pain, throat pain Respiratory: denies: cough, shortness of breath, wheezing Cardiovascular: denies: chest pain, palpitations Endocrine: no symptoms reported Gastrointestinal: denies: abdominal pain, nausea, diarrhea Genitourinary: denies: urgency, dysuria, discharge Musculoskeletal: denies: back pain, joint swelling, arthralgia Skin: denies: rash, lesions Neurological: paresthesias (bilat feet) Psychiatric: denies: anxiety, depression Hematological/Lymphatic: denies: easy bleeding, easy bruising ED Past Medical Hx - Past Medical History Previous Medical History?: Yes Hx Diabetes: Yes Additional medical history: ibrahima allens dz - Surgical History Past Surgical History?: Yes Additional Surgical History: C section X 2 - Social History Smoking Status: Never Smoker Substance Use Type: None - Medications Home Medications: Home Medications Medication Instructions Recorded Confirmed Last Taken Type Chlorhexidine Gluconate 5 ml TP BID #240 liquid 06/12/20 Unknown Rx [Antiseptic Skin Cleanser] Famotidine [Pepcid] 40 mg PO DAILY #14 tablet 06/12/20 Unknown Rx hydrOXYzine HCL [Atarax] 25 mg PO Q6HR PRN #20 tablet 06/12/20 Unknown Rx predniSONE [Deltasone] 50 mg PO QDAY #5 tab 06/12/20 Unknown Rx Naproxen [Naprosyn TAB] 500 mg PO BID #20 tablet 07/03/20 Unknown Rx EPINEPHrine [Epipen 2-Cachorro] 0.3 mg IM DAILY PRN #2 ml 09/17/20 Unknown Rx Famotidine [Pepcid] 20 mg PO BID #10 tablet 09/17/20 Unknown Rx Nitrofurantoin [place]/M-Cryst 100 mg PO Q12HR #14 capsule 09/17/20 Unknown Rx [Macrobid CAP] diphenhydrAMINE [Benadryl] 50 mg PO Q8HR PRN #20 capsule 09/17/20 Unknown Rx Gabapentin 300 mg PO BID #30 cap 01/30/21 Unknown Rx Ibuprofen [Motrin 800 MG tab] 800 mg PO Q8HR PRN #30 tablet 01/30/21 Unknown Rx diphenhydrAMINE [Benadryl CAP] 25 mg PO Q8HR PRN #30 capsule 01/30/21 Unknown Rx ED Physical Exam - General Limitations: No Limitations General appearance: alert, in no apparent distress - Head Head exam: Present: atraumatic, normocephalic - Eye Eye exam: Present: normal appearance, EOMI Pupils: Present: normal accommodation - ENT ENT exam: Present: mucous membranes moist - Neck Neck exam: Present: normal inspection, full ROM. Absent: tenderness - Respiratory Respiratory exam: Present: normal lung sounds bilaterally. Absent: respiratory distress, wheezes, stridor - Cardiovascular Cardiovascular Exam: Present: regular rate, normal rhythm, normal heart sounds - GI/Abdominal GI/Abdominal exam: Present: soft, normal bowel sounds. Absent: distended, tenderness - Rectal Rectal exam: Present: deferred - Extremities Exam Extremities exam: Present: normal inspection, full ROM, normal capillary refill, other (distal pulses intact +2, rom intact unrestricted, gait is steady ). Absent: tenderness, pedal edema, calf tenderness - Expanded Lower Extremity Exam Left Neuro vascular tendon exam: Absent: pulse deficit, motor deficit, sensory deficit, tendon deficit, extremity cold to touch, pallor, abnormal 2-point discrimination, decreased fine/light touch, foot drop, significant pain with passive ROM of distal joint Gait: Positive: observed and normal Right Foot/Toe exam: Present: full ROM. Absent: tenderness Neuro vascular tendon exam: Absent: pulse deficit, motor deficit, sensory deficit, tendon deficit, extremity cold to touch, pallor, foot drop, significant pain with passive ROM of distal joint Gait: Positive: observed and normal - Back Exam Back exam: Present: normal inspection, full ROM. Absent: tenderness, paraspinal tenderness, vertebral tenderness - Neurological Exam Neurological exam: Present: alert, oriented X3, CN II-XII intact, normal gait, reflexes normal. Absent: motor sensory deficit - Expanded Neurological Exam Expanded Patient oriented to: Present: person, place, time Speech: Present: fluid speech Sensory exam: Lower Extremity Light Touch: Normal, Lower Extremity Pin Prick: Normal, Lower Extremity Temperature: Normal, LE 2 Point Discrimination: Normal Motor strength exam: RLE: 5, LLE: 5 DTR: ankle (R): 2+, ankle (L): 2+ Best Eye Response (Canones): (4) open spontaneously Best Motor Response (Canones): (6) obeys commands Best Verbal Response (Canones): (5) oriented Artemio Total: 15 - Psychiatric Psychiatric exam: Present: normal affect, normal mood - Skin Skin exam: Present: warm, dry, intact, normal color. Absent: rash ED Course Vital Signs 01/30/21 22:39 Temperature 98 F Pulse Rate 100 H Respiratory 16 Rate Blood Pressure 103/68 [Right] O2 Sat by Pulse 100 Oximetry ED Medical Decision Making - Medical Decision Making Patient appears well nontoxic, physical exam is unremarkable no calf tenderness, no numbness no decrease in sensation range of motion is intact strength is 5 distal pulses intact, plan ibuprofen, gabapentin, follow-up with primary care doctor next week as scheduled. Patient verbalized agreement and understanding with discharge plan. Patient will be DC'd home in stable condition at this time. Critical care attestation.: If time is entered above; I have spent that time in minutes in the direct care of this critically ill patient, excluding procedure time. ED Disposition Clinical Impression: Musculoskeletal pain Neuropathy, lower extremity Qualifiers: Laterality: bilateral Qualified Code(s): G57.93 - Unspecified mononeuropathy of bilateral lower limbs Disposition: HOME / SELF CARE / HOMELESS Is pt being admited?: No Does the pt Need Aspirin: No Condition: Stable Instructions: Peripheral Neuropathy, Musculoskeletal Pain Additional Instructions: Take medications as prescribed, follow-up with your primary care doctor as scheduled, call tomorrow to refill other medications as discussed and agreed. Return to emergency should symptoms worsen Prescriptions: diphenhydrAMINE [Benadryl CAP] 25 mg PO Q8HR PRN #30 capsule PRN Reason: Itching Gabapentin 300 mg PO BID #30 cap Ibuprofen [Motrin 800 MG tab] 800 mg PO Q8HR PRN #30 tablet PRN Reason: pain Referrals: PATTI JUÁREZ MD [Staff Physician] - 3-5 Days Forms: Work/School Release Form(ED) Time of Disposition: 23:09
== END 2021-01-31 00:11 | disposition home or self-care (01) ==
LOC: ED 21:58
DX: G57.93 Unspecified mononeuropathy of bilateral lower limbs (principal); M79.18 Myalgia, other site; E10.21 Type 1 diabetes mellitus with diabetic nephropathy; G20 Parkinson's disease; Z98.890 Other specified postprocedural states; Z88.1 Allergy status to other antibiotic agents
CPT/HCPCS: 82962; 99282

== ENCOUNTER 2021-04-03 04:28 | Emergency (ER) | payer MEDICAID ==
[2021-04-03 04:35] VITALS: BP 132/86
[2021-04-03 05:07] LABS: Basophils % (Auto) 0.4 % (0.0-1.8); Eosinophils # (Auto) 0.1 K/mm3 (0.0-0.4); Eosinophils % (Auto) 1.5 % (0.0-4.3); Hematocrit 40.2 % (30.3-42.9); Hemoglobin 13.3 gm/dl (10.1-14.3); Lymphocytes # (Auto) 1.8 K/mm3 (1.2-5.4); Lymphocytes % (Auto) 27.4 % (13.4-35.0); Mean Corpuscular HGB Conc 33 % (30-34); Mean Corpuscular Volume 92 fl (79-97); Monocytes # (Auto) 0.5 K/mm3 (0.0-0.8); Monocytes % (Auto) 7.1 % (0.0-7.3); Platelet Count 270 K/mm3 (140-440); Red Blood Count 4.36 M/mm3 (3.65-5.03); Red Cell Distribution Width 12.5 % (13.2-15.2)
[2021-04-03 05:27] LABS: Alanine Aminotransferase 11 units/L (7-56); Albumin 4.1 g/dL (3.9-5); Blood Urea Nitrogen 10 mg/dL (7-17); Calcium 8.7 mg/dL (8.4-10.2); Hemolysis Index 11
--- NOTE | 2021-04-03 05:34 | XRay Report ---
CHEST 2 VIEWS INDICATION / CLINICAL INFORMATION: Chest Pain. COMPARISON: 09/17/20 FINDINGS: SUPPORT DEVICES: None. HEART / MEDIASTINUM: No significant abnormality. LUNGS / PLEURA: No significant pulmonary or pleural abnormality. No pneumothorax. ADDITIONAL FINDINGS: No significant additional findings. IMPRESSION: 1. No acute findings. No change. Signer Name: Ksenia Do MD Signed: 04/03/2021 5:29 AM Workstation Name: [id number]
[2021-04-03 05:55] LABS: BUN/Creatinine Ratio 17
--- NOTE | 2021-04-03 06:57 | Emergency Department Report ---
ED General Adult HPI - General Chief complaint: Chest Pain Stated complaint: CHEST PAIN Time Seen by Provider: 04/03/21 06:06 Source: patient Mode of arrival: Ambulatory Limitations: No Limitations - History of Present Illness Initial comments: 31-year-old F [place] female with past medical history of type 1 diabetes with insulin pump, Enkhj-Vweenkrlm-Kusxm in conjunction with history of bipolar disorder started taking Cymbalta 60 mg on today and after taking her first dose of medication began to experience some lightheadedness, headache, nausea and some chest pains off and on to the chest which she really worried and came to emerge department seeking further evaluation treatment options. The chest pain spontaneously resolved about 10 hours after taking the medication. She reports no cough, no congestion, no fever, chills, sweats, no hemoptysis no hematemesis hematochezia. Reports no chest pain on exertion. No trauma no trauma, no sick contacts to her knowledge. -: Gradual Location: chest Radiation: non-radiation Quality: dull Consistency: constant Improves with: none Worsens with: none Associated Symptoms: chest pain, headaches, malaise, nausea/vomiting (Nausea without vomiting). denies: cough, diaphoresis, loss of appetite - Related Data Previous Rx's Medication Instructions Recorded Last Taken Type Chlorhexidine Gluconate 5 ml TP BID #240 liquid 06/12/20 Unknown Rx [Antiseptic Skin Cleanser] Famotidine [Pepcid] 40 mg PO DAILY #14 tablet 06/12/20 Unknown Rx hydrOXYzine HCL [Atarax] 25 mg PO Q6HR PRN #20 tablet 06/12/20 Unknown Rx predniSONE [Deltasone] 50 mg PO QDAY #5 tab 06/12/20 Unknown Rx Naproxen [Naprosyn TAB] 500 mg PO BID #20 tablet 07/03/20 Unknown Rx EPINEPHrine [Epipen 2-Cachorro] 0.3 mg IM DAILY PRN #2 ml 09/17/20 Unknown Rx Famotidine [Pepcid] 20 mg PO BID #10 tablet 09/17/20 Unknown Rx Nitrofurantoin [place]/M-Cryst 100 mg PO Q12HR #14 capsule 09/17/20 Unknown Rx [Macrobid CAP] diphenhydrAMINE [Benadryl] 50 mg PO Q8HR PRN #20 capsule 09/17/20 Unknown Rx Gabapentin 300 mg PO BID #30 cap 09/09/21 Unknown Rx Ibuprofen [Motrin 800 MG tab] 800 mg PO Q8HR PRN #30 tablet 01/30/21 Unknown Rx diphenhydrAMINE [Benadryl CAP] 25 mg PO Q8HR PRN #30 capsule 01/30/21 Unknown Rx Allergies Allergy/AdvReac Type Severity Reaction Status Date / Time clindamycin Allergy Itching Verified 06/12/20 04:31 ED Review of Systems ROS: Stated complaint: CHEST PAIN Other details as noted in HPI Comment: All other systems reviewed and negative ED Past Medical Hx - Past Medical History Hx Diabetes: Yes Additional medical history: alexandra parkinsons dz - Surgical History Additional Surgical History: C section X 2 - Social History Smoking Status: Never Smoker Substance Use Type: None - Medications Home Medications: Home Medications Medication Instructions Recorded Confirmed Last Taken Type Chlorhexidine Gluconate 5 ml TP BID #240 liquid 06/12/20 Unknown Rx [Antiseptic Skin Cleanser] Famotidine [Pepcid] 40 mg PO DAILY #14 tablet 06/12/20 Unknown Rx hydrOXYzine HCL [Atarax] 25 mg PO Q6HR PRN #20 tablet 06/12/20 Unknown Rx predniSONE [Deltasone] 50 mg PO QDAY #5 tab 06/12/20 Unknown Rx Naproxen [Naprosyn TAB] 500 mg PO BID #20 tablet 07/03/20 Unknown Rx EPINEPHrine [Epipen 2-Cachorro] 0.3 mg IM DAILY PRN #2 ml 09/17/20 Unknown Rx Famotidine [Pepcid] 20 mg PO BID #10 tablet 09/17/20 Unknown Rx Nitrofurantoin [place]/M-Cryst 100 mg PO Q12HR #14 capsule 09/17/20 Unknown Rx [Macrobid CAP] diphenhydrAMINE [Benadryl] 50 mg PO Q8HR PRN #20 capsule 09/17/20 Unknown Rx Gabapentin 300 mg PO BID #30 cap 01/30/21 Unknown Rx Ibuprofen [Motrin 800 MG tab] 800 mg PO Q8HR PRN #30 tablet 01/30/21 Unknown Rx diphenhydrAMINE [Benadryl CAP] 25 mg PO Q8HR PRN #30 capsule 01/30/21 Unknown Rx ED Physical Exam - General Limitations: No Limitations General appearance: alert, in no apparent distress - Head Head exam: Present: atraumatic, normocephalic - Eye Eye exam: Present: normal appearance, PERRL, EOMI Pupils: Present: normal accommodation - ENT ENT exam: Present: normal exam, mucous membranes moist, TM's normal bilaterally - Neck Neck exam: Present: normal inspection, full ROM - Respiratory Respiratory exam: Present: normal lung sounds bilaterally. Absent: respiratory distress, wheezes, rales, rhonchi, chest wall tenderness, accessory muscle use, decreased breath sounds - Cardiovascular Cardiovascular Exam: Present: regular rate, normal rhythm. Absent: systolic murmur, diastolic murmur, rubs, gallop - GI/Abdominal GI/Abdominal exam: Present: soft, normal bowel sounds - Extremities Exam Extremities exam: Present: normal inspection, full ROM, normal capillary refill - Back Exam Back exam: Present: normal inspection. Absent: CVA tenderness (R), CVA tenderness (L) - Neurological Exam Neurological exam: Present: alert, oriented X3, CN II-XII intact - Psychiatric Psychiatric exam: Present: normal affect, normal mood - Skin Skin exam: Present: warm, dry, intact, normal color. Absent: rash, diaphoretic, erythema, pallor, abrasion ED Course Vital Signs 04/03/21 04:31 Temperature 98.5 F Pulse Rate 104 H Respiratory 15 Rate Blood Pressure 132/86 [Left] O2 Sat by Pulse 100 Oximetry ED Medical Decision Making - Lab Data Result diagrams: 04/03/21 04:53 04/03/21 04:53 - Medical Decision Making This patient presents with chest pain that is very unlikely angina or acute coronary syndrome. The emergency department evaluation has not identified any cause for suspicion that this chest pain has a cardiac etiology. Based on their history, EKG (which showed no evidence of ischemia or infarction) and imaging, in addition to the patient's physical exam, I see no evidence at this time for a malignant etiology for the patient's chest pain. There is no acute evidence for pulmonary embolus, acute myocardial infarction, pneumothorax, Boerhaeve syndrome, cardiac tamponade, thoracic artery dissection, or any other emergent cardiac, pulmonary or aortic pathology. Given the low pre-test probability for cardiac etiology of chest pain and the absence of any sign of ischemia or infarction, discharge for outpatient follow-up and further evaluation is reasonable. The symptoms seem to be more linked to her medication advised patient to consult her primary care provider/midlevel provider to seek an alternative or adjustment in her medication dosage. Currently asymptomatic feels much better I have explained to the patient that even though a cardiac problem is very unlikely, follow-up and further testing is required to reduce further the already small uncertainty that exists. Other life-threatening diagnoses have been considered. The patient understands the need to return immediately if their symptoms worsen or they develop any new symptoms, and not to engage in any significant exertional activity until follow-up is obtained. Critical care attestation.: If time is entered above; I have spent that time in minutes in the direct care of this critically ill patient, excluding procedure time. ED Disposition Clinical Impression: Medication side effects, Nonspecific chest pain Disposition: HOME / SELF CARE / HOMELESS Is pt being admited?: No Does the pt Need Aspirin: No Condition: Stable Instructions: Nonspecific Chest Pain, Adult, Drug Allergy Additional Instructions: Please follow-up with your primary care or mental health provider she discussed you experience with this newmedication to see the best course of action of management Referrals: NILS TINOCO MD [Staff Physician] - 3-5 Days
--- NOTE | 2021-04-03 12:01 | Electrocardiograph Report ---
[facility] Test Date: 2021-04-03 Test Time: 04:42:50 Pat Name: SIRENA IBRAHIM Department: Room: Gender: F [employer] Correspondent: FARRUKH : 1990 Requested By: TRISTAN CHU Order Number: [id number] Reading MD: Kasie Kinney Measurements Intervals [place] Rate: 100 P: 95 DC: 195 QRS: -11 QRSD: 94 T: 117 QT: 370 QTc: 478 Interpretive Statements Sinus tachycardia Mkrgl-Jhfzabtoi-Bgsly syndrome Compared to ECG 09/17/2020 00:43:24 No significant change Electronically Signed On 04-03-2021 12:00:28 EST by Kasie Kinney
== END 2021-04-03 07:50 | disposition home or self-care (01) ==
LOC: ED 04:28
DX: R07.9 Chest pain, unspecified (principal); T50.905A Adverse effect of unspecified drugs, medicaments and biological substances, initial encounter; Z88.1 Allergy status to other antibiotic agents; E11.8 Type 2 diabetes mellitus with unspecified complications; Y92.89 Other specified places as the place of occurrence of the external cause
CPT/HCPCS: 36415; 71046; 80053; 84484; 85025; 93005; 99283

== ENCOUNTER 2021-11-27 01:11 | Emergency (ER) | payer MEDICAID ==
[2021-11-27] MEDS ORDERED: KETOROLAC 10 MG TAB PO ONE (10:20)
[2021-11-27] MEDS ORDERED: AMOXICILLIN 500 MG CAP PO ONE (10:20)
[2021-11-27] MEDS ORDERED: oxyCODONE /ACETAMINOPHEN 5-325MG TAB PO ONE (10:20)
--- NOTE | 2021-11-27 10:26 | Emergency Department Report ---
ED ENT HPI - General Chief complaint: Dental/Oral Stated complaint: TOOTHACHE Time Seen by Provider: 11/27/21 10:13 Source: patient Mode of arrival: Ambulatory Limitations: No Limitations - History of Present Illness Initial comments: 31 yo black female presents to ed for evaluation of few day history of worsening dental pain. She states that she has had an intermittent fever also. MD complaint: tooth pain -: Gradual, days(s) (2-3) Location: tooth # (2) Severity: severe Severity scale (0 -10): 10 Quality: aching Consistency: constant Associated Symptoms: fever, gum swelling, toothache. denies: cough, pain with swallowing, sore throat, discharge from ear, rhinorrhea - Related Data Previous Rx's Medication Instructions Recorded Last Taken Type Chlorhexidine Gluconate 5 ml TP BID #240 liquid 06/12/20 Unknown Rx [Antiseptic Skin Cleanser] Famotidine [Pepcid] 40 mg PO DAILY #14 tablet 06/12/20 Unknown Rx hydrOXYzine HCL [Atarax] 25 mg PO Q6HR PRN #20 tablet 06/12/20 Unknown Rx predniSONE [Deltasone] 50 mg PO QDAY #5 tab 06/12/20 Unknown Rx Naproxen [Naprosyn TAB] 500 mg PO BID #20 tablet 07/03/20 Unknown Rx EPINEPHrine [Epipen 2-Cachorro] 0.3 mg IM DAILY PRN #2 ml 09/17/20 Unknown Rx Famotidine [Pepcid] 20 mg PO BID #10 tablet 09/17/20 Unknown Rx Nitrofurantoin [place]/M-Cryst 100 mg PO Q12HR #14 capsule 09/17/20 Unknown Rx [Macrobid CAP] diphenhydrAMINE [Benadryl] 50 mg PO Q8HR PRN #20 capsule 09/17/20 Unknown Rx Gabapentin 300 mg PO BID #30 cap 01/30/21 Unknown Rx Ibuprofen [Motrin 800 MG tab] 800 mg PO Q8HR PRN #30 tablet 01/30/21 Unknown Rx diphenhydrAMINE [Benadryl CAP] 25 mg PO Q8HR PRN #30 capsule 01/30/21 Unknown Rx Acetaminophen/Codeine [Tylenol 1 tab PO Q6H PRN #12 tab 11/27/21 Unknown Rx /Codeine # 3 tab] Amoxicillin [Amoxicillin TAB] 875 mg PO BID #14 tab 11/27/21 Unknown Rx Ketorolac [Toradol] 10 mg PO Q6H PRN #12 tab 11/27/21 Unknown Rx Allergies Allergy/AdvReac Type Severity Reaction Status Date / Time clindamycin Allergy Itching Verified 06/12/20 04:31 ED Dental HPI - General Chief complaint: Dental/Oral Stated complaint: TOOTHACHE Time Seen by Provider: 11/27/21 10:13 Source: patient Mode of arrival: Ambulatory Limitations: No Limitations - Related Data Previous Rx's Medication Instructions Recorded Last Taken Type Chlorhexidine Gluconate 5 ml TP BID #240 liquid 06/12/20 Unknown Rx [Antiseptic Skin Cleanser] Famotidine [Pepcid] 40 mg PO DAILY #14 tablet 06/12/20 Unknown Rx hydrOXYzine HCL [Atarax] 25 mg PO Q6HR PRN #20 tablet 06/12/20 Unknown Rx predniSONE [Deltasone] 50 mg PO QDAY #5 tab 06/12/20 Unknown Rx Naproxen [Naprosyn TAB] 500 mg PO BID #20 tablet 07/03/20 Unknown Rx EPINEPHrine [Epipen 2-Cachorro] 0.3 mg IM DAILY PRN #2 ml 09/17/20 Unknown Rx Famotidine [Pepcid] 20 mg PO BID #10 tablet 09/17/20 Unknown Rx Nitrofurantoin [place]/M-Cryst 100 mg PO Q12HR #14 capsule 09/17/20 Unknown Rx [Macrobid CAP] diphenhydrAMINE [Benadryl] 50 mg PO Q8HR PRN #20 capsule 09/17/20 Unknown Rx Gabapentin 300 mg PO BID #30 cap 01/30/21 Unknown Rx Ibuprofen [Motrin 800 MG tab] 800 mg PO Q8HR PRN #30 tablet 01/30/21 Unknown Rx diphenhydrAMINE [Benadryl CAP] 25 mg PO Q8HR PRN #30 capsule 01/30/21 Unknown Rx Acetaminophen/Codeine [Tylenol 1 tab PO Q6H PRN #12 tab 11/27/21 Unknown Rx /Codeine # 3 tab] Amoxicillin [Amoxicillin TAB] 875 mg PO BID #14 tab 11/27/21 Unknown Rx Ketorolac [Toradol] 10 mg PO Q6H PRN #12 tab 11/27/21 Unknown Rx Allergies Allergy/AdvReac Type Severity Reaction Status Date / Time clindamycin Allergy Itching Verified 06/12/20 04:31 ED Review of Systems ROS: Stated complaint: TOOTHACHE Other details as noted in HPI Comment: All other systems reviewed and negative Constitutional: fever ENT: dental pain. denies: ear pain Respiratory: denies: shortness of breath Cardiovascular: denies: chest pain Gastrointestinal: denies: abdominal pain, nausea, vomiting Neurological: denies: headache ED Past Medical Hx - Past Medical History Hx Diabetes: Yes Additional medical history: alexandra parkinsons dz - Surgical History Additional Surgical History: C section X 2 - Social History Smoking Status: Never Smoker Substance Use Type: None - Medications Home Medications: Home Medications Medication Instructions Recorded Confirmed Last Taken Type Chlorhexidine Gluconate 5 ml TP BID #240 liquid 06/12/20 Unknown Rx [Antiseptic Skin Cleanser] Famotidine [Pepcid] 40 mg PO DAILY #14 tablet 06/12/20 Unknown Rx hydrOXYzine HCL [Atarax] 25 mg PO Q6HR PRN #20 tablet 06/12/20 Unknown Rx predniSONE [Deltasone] 50 mg PO QDAY #5 tab 06/12/20 Unknown Rx Naproxen [Naprosyn TAB] 500 mg PO BID #20 tablet 07/03/20 Unknown Rx EPINEPHrine [Epipen 2-Cachorro] 0.3 mg IM DAILY PRN #2 ml 09/17/20 Unknown Rx Famotidine [Pepcid] 20 mg PO BID #10 tablet 09/17/20 Unknown Rx Nitrofurantoin [place]/M-Cryst 100 mg PO Q12HR #14 capsule 09/17/20 Unknown Rx [Macrobid CAP] diphenhydrAMINE [Benadryl] 50 mg PO Q8HR PRN #20 capsule 09/17/20 Unknown Rx Gabapentin 300 mg PO BID #30 cap 01/30/21 Unknown Rx Ibuprofen [Motrin 800 MG tab] 800 mg PO Q8HR PRN #30 tablet 01/30/21 Unknown Rx diphenhydrAMINE [Benadryl CAP] 25 mg PO Q8HR PRN #30 capsule 01/30/21 Unknown Rx Acetaminophen/Codeine [Tylenol 1 tab PO Q6H PRN #12 tab 11/27/21 Unknown Rx /Codeine # 3 tab] Amoxicillin [Amoxicillin TAB] 875 mg PO BID #14 tab 11/27/21 Unknown Rx Ketorolac [Toradol] 10 mg PO Q6H PRN #12 tab 11/27/21 Unknown Rx ED Physical Exam - General Limitations: No Limitations General appearance: alert, in no apparent distress - Head Head exam: Present: atraumatic, normocephalic - Eye Eye exam: Present: normal appearance. Absent: conjunctival injection - Expanded ENT Exam Expanded Teeth exam: Present: dental tenderness # (2), other (erythema, edema, tenderness and abscess noted to gums surround tooth #2) - Neck Neck exam: Present: normal inspection. Absent: lymphadenopathy - Respiratory Respiratory exam: Absent: respiratory distress - Cardiovascular Cardiovascular Exam: Present: tachycardia - GI/Abdominal GI/Abdominal exam: Absent: distended - Extremities Exam Extremities exam: Present: normal inspection - Back Exam Back exam: Present: normal inspection - Neurological Exam Neurological exam: Present: alert, oriented X3 - Psychiatric Psychiatric exam: Present: normal affect, normal mood - Skin Skin exam: Present: warm, dry, intact, normal color ED Course Vital Signs 11/27/21 11/27/21 02:17 10:49 Temperature 98.1 F 99.1 F Pulse Rate 102 H 82 Respiratory 16 16 Rate Blood Pressure 131/78 Blood Pressure 132/86 [Right] O2 Sat by Pulse 99 100 Oximetry ED Medical Decision Making - Medical Decision Making 31 yo black female presents to ed for evaluation of few day history of worsening dental pain. She states that she has had an intermittent fever also. Exam consistent with dental abscess. Patient will be treated with antibiotics, anti inflammatories, and pain medications in ed and at home and advised to follow up with dentist or return to ed as needed. She verbalized understanding of and agreement with plan of care. Critical care attestation.: If time is entered above; I have spent that time in minutes in the direct care of this critically ill patient, excluding procedure time. ED Disposition Clinical Impression: Dental abscess Disposition: HOME / SELF CARE / HOMELESS Is pt being admited?: No Does the pt Need Aspirin: No Condition: Stable Instructions: Dental Abscess, [id number], Preventive Dental Care, Adult Additional Instructions: Take medications as prescribed. Follow-up with dentist as soon as possible. Return to the emergency department as needed. Prescriptions: Amoxicillin [Amoxicillin TAB] 875 mg PO BID #14 tab Ketorolac [Toradol] 10 mg PO Q6H PRN #12 tab PRN Reason: Pain Acetaminophen/Codeine [Tylenol /Codeine # 3 tab] 1 tab PO Q6H PRN #12 tab PRN Reason: Pain, Moderate (4-6) Referrals: [facility] [Outside] - 3-5 Days [facility] [Outside] - 3-5 Days Forms: Work/School Release Form(ED) Time of Disposition: 10:25
[2021-11-27 10:50] VITALS: BP 132/86
== END 2021-11-27 10:52 | disposition home or self-care (01) ==
LOC: ED 01:11
DX: K04.7 Periapical abscess without sinus (principal); Z88.8 Allergy status to other drugs, medicaments and biological substances; E11.9 Type 2 diabetes mellitus without complications
CPT/HCPCS: 99282